=== PATIENT | female | born 1955 | race Caucasian/White ===

== ENCOUNTER → 2016-06-29 | Outpatient (CLI) | payer BC ==
--- NOTE | 2016-06-29 14:54 | DI ---
LIVER ULTRASOUND, 06/29/2016 1:04 PM: Clinical History: Elevated liver function tests. The patient is status post cholecystectomy and right nephrectomy. Previous Exam: 03/13/2008. Technique: Scans are performed through the right upper quadrant in multiple projections. Scans are obtained through the liver in multiple projections including through the rib spaces in orde r to visualize the liver itself. There is diffuse increased echogenicity with decreased through trans mission consistent with fatty infiltration. No liver mass is identified. The common bile duct could n ot be identified due to the surrounding bowel gas that was present in the renal fossa. The pancreas i s visualized only in the head region and that portion is normal. The aorta and IVC are normal. Readin. There is diffuse fatty infiltration of the liver. No liver mass is identified. 2. Status post cholecystectomy. The common duct could not be imaged. The patient is also status post right nephrectomy. 3. The aorta and IVC and very limited views of the head of the pancreas are normal.
== END ==
LOC: US 13:00
PROVIDERS: ATTEND Family Medicine
DX: R94.5 Abnormal results of liver function studies (principal); K76.0 Fatty (change of) liver, not elsewhere classified
CPT/HCPCS: 76705

== ENCOUNTER → 2016-11-29 | Outpatient (CLI) | payer BC ==
--- NOTE | 2016-11-29 17:24 | DI ---
PA /LATERAL CHEST X-RAY, 11/29/2016 10:55 AM : Clinical History: Right renal carcinoma Previous Exam: November 30, 2015 There is no acute soft tissue or bony abnormality. Heart size is normal. Lungs are clear. Mediastinal structures are normal. There are no pulmonary nodules. IMPRESSION: Normal chest x-ray.
== END ==
LOC: LAB 10:48
PROVIDERS: ATTEND Urology
DX: C64.1 Malignant neoplasm of right kidney, except renal pelvis (principal)
CPT/HCPCS: 36415; 71020; 82565

== ENCOUNTER → 2016-12-06 | Outpatient (CLI) | payer BC ==
--- NOTE | 2016-12-06 11:09 | DI ---
CT ABD W/CN AND PELVIS W/CN,12/06/2016 9:00 AM: Clinical History: Renal cell carcinoma. Previous Exam: 2015, 2014 and 2007 Findings: Multiple helically acquired CT images are obtained through the abdomen and pelvis following a CT urog hattie protocol, and demonstrate clear lung bases. The liver demonstrates mild diffuse fatty infiltration. Patient is status post cholecystectomy. The p atient is also status post right total nephrectomy. The left kidney is normal without mass nor abnormal enhancement. The ureter is normal with normal course, caliber and a normal insertion on the urinary bladder. There is tried stool seen throughout the colon. There is no free air nor free fluid. There is no mesenteric or retroperitoneal lymphadenopathy. Skeletal structures are unremarkable except for some mild degenerative changes of the hips. The urinary bladder is unremarkable. Impression: 1. Status post right total nephrectomy without any evidence of disease recurrence.
== END ==
LOC: CT 08:55
PROVIDERS: ATTEND Urology
DX: C64.1 Malignant neoplasm of right kidney, except renal pelvis (principal); Z90.5 Acquired absence of kidney; Z98.890 Other specified postprocedural states
CPT/HCPCS: 74177

== ENCOUNTER → 2017-01-06 | Outpatient (CLI) | payer BC | LOC: MOB LAB 12:58 | PROVIDERS: ATTEND Nurse Practitioner | DX: L76.82 Other postprocedural complications of skin and subcutaneous tissue (principal); S21.002A Unspecified open wound of left breast, initial encounter; Z98.890 Other specified postprocedural states | CPT/HCPCS: 87070; 87077; 87186; 87205 ==

== ENCOUNTER 2017-01-13 10:00 | Day surgery (SDC) | payer BC ==
[~2017-01-13 10:00] MED LIST: LIDOCAINE W/ SODIUM BICARB 0.5 ML SYR ONE; Lactated Ringers 1,000 ML PRIMARY IV ONE; MIDAZOLAM 5 MG/1 ML ONE; ceFAZolin Inj 2gm (Premix) 50 ML IV ONE; fentaNYL Inj 250 MCG/5 ML VIAL ONE
--- NOTE | 2017-01-13 12:16 | GEN.OPNOTE ---
Operative Note Surgery Date: 01/13/17 Preoperative Diagnosis: Left postoperative breast abscess Postoperative Diagnosis: Left postoperative breast abscess Procedure: I&D of the left breast abscess Surgeon: Darien Lerner MD Anesthesia Provider: Amaya Zayas CRNA Anesthesia Type: Local, MAC Estimated Blood Loss (mL): 5 Fluids: Lactated Ringer's please see anesthesia notes in EMR Pathology: Anaerobic and aerobic cultures taken Indications: Patient had a breast reduction surgery in I believe September of this year she has had a persistent breast infection since that time. This is tunneling deep into the breast therefore needs be reopened up so can heal properly Findings: Breast abscess Operative Summary: Patient is brought in operative room placed in supine position given IV sedation. Prepped draped sterile fashion. Timeout performed per protocols. I then infiltrated 0.5 Marcaine into the wound. Using electrocautery opened up the abscess cavity. Cultures obtained. I then used pulse lavage cleanout the abscess cavity. The wound was then packed with quarter inch Nu Gauze with Multidex. Patient tolerated well the were no problems
[2017-01-13 12:44] VITALS: RESP 16
[2017-01-13 13:20] VITALS: TEMP 99.1
== END 2017-01-13 13:15 | disposition home or self-care (01) ==
LOC: SDSC 10:00
PROVIDERS: ATTEND Surgery
DX: T81.4XXA Infection following a procedure, initial encounter (principal); N61.1 Abscess of the breast and nipple
CPT/HCPCS: 19020; 87070; 87075; 87077; 87186 ×2; J0690; J2250; J2704; J3010; J7120